=== PATIENT | female | born 1975 | race Caucasian/White ===

== ENCOUNTER 2020-06-30 13:49 | Emergency (ER) | payer MEDICAID ==
[~2020-06-30] VITALS: Ht 111.8 cm; Wt 33.0 kg
[2020-06-30] MEDS ORDERED: mineral oil 133ml enema RC PRN (17:05)
[2020-06-30] MEDS ORDERED: mineral oil 133ml enema RC ONE (18:15)
--- NOTE | 2020-06-30 20:12 | NUR ---
REPORTED TO DR BORJAS DIGITAL STIMULATION OF RECTUM TO LARGE HARD PIECES REMOVED WITH SSE.
[2020-06-30 22:12] VITALS: BP 98/66
== END 2020-06-30 22:14 | disposition home or self-care (01) ==
LOC: ER 13:50
DX: K59.00 Constipation, unspecified (principal); K56.41 Fecal impaction
CPT/HCPCS: 74018; 74176; 99284

== ENCOUNTER 2020-07-09 14:20 | Emergency (ER) | payer MEDICAID ==
[~2020-07-09] VITALS: Ht 111.8 cm; Wt 29.6 kg
[2020-07-09] MEDS ORDERED: normal saline 1000ML IV soln IVB ONE (15:40)
[2020-07-09 16:25] LABS: BASOPHILS % (AUTO) 0.5 % (0-1); EOSINOPHILS % (AUTO) 0 % (0-6); HEMOGLOBIN 13.2 g/dl (12.0-16.0); LYMPHOCYTES % (AUTO) 46.1 % (21-51); MEAN CORPUSCULAR HEMOGLOBIN 25.4 PG (27.0-31.0); MEAN CORPUSCULAR HGB CONC 32.2 g/dL (33.0-36.5); MEAN CORPUSCULAR VOLUME 78.9 FL (78-98); MEAN PLATELET VOLUME 8.5 FL (7.4-10.4); MONOCYTES # (AUTO) 1.2 X10'3 (0-0.9); MONOCYTES % (AUTO) 13.6 % (2-12); NEUTROPHILS # (AUTO) 3.4 X10'3 (1.8-7.7); NEUTROPHILS % (AUTO) 39.8 % (42-75); PLATELET COUNT 351 X10'3 (140-440); RED BLOOD COUNT 5.19 X10'6 (4.20-5.60); RED CELL DISTRIBUTION WIDTH 17.6 % (11.5-14.5); WHITE BLOOD COUNT 8.7 X10'3 (4.5-11.0)
[2020-07-09 16:34] LABS: ALANINE AMINOTRANSFERASE 35 U/L (12-78); ALBUMIN 3.6 G/DL (3.4-5.0); ALBUMIN/GLOBULIN RATIO 0.8 (1.1-1.5); ALKALINE PHOSPHATASE 111 IU/L (46-116); ANION GAP 8 (8-16); ASPARTATE AMINO TRANSFERASE 27 U/L (10-37); BILIRUBIN,TOTAL 0.2 MG/DL (0.1-1.0); BLOOD UREA NITROGEN 17 MG/DL (7-18); BUN/CREATININE RATIO 21.3 (6.6-38.0); CALCIUM 9.5 MG/DL (8.5-10.1); CHLORIDE 107 MMOL/L (99-107); GLUCOSE 85 MG/DL (70-104); POTASSIUM 4.1 MMOL/L (3.5-5.1); SODIUM 145 MMOL/L (135-145); TOTAL CARBON DIOXIDE 30.1 MMOL/L (24-32); TOTAL PROTEIN 8.2 G/DL (6.4-8.2); eGFR 78 ML/MIN
[2020-07-09] MEDS ORDERED: PEG 3350/Na sulf,bicarb,Cl/KCl oral sol 4 liter bottle PO ONE (20:20)
[2020-07-09] MEDS ORDERED: HYDROcodone/acetaminophen 5mg/325mg tablet PO PRN (20:55)
[2020-07-09] MEDS ORDERED: mag hydrox/Alum hydrox/simeth 30ml oral suspension PO PRN (20:55)
[2020-07-09] MEDS ORDERED: ondansetron/PF 4mg/2ml inj IV PRN (20:55)
[2020-07-09] MEDS ORDERED: morphine 2 MG/ML inj. syringe IV PRN ×2 (20:55)
[2020-07-09] MEDS ORDERED: normal saline 1000ml 1,000 ML IV SCH (20:55)
[2020-07-09] MEDS ORDERED: acetaminophen 325mg tablet PO PRN ×2 (20:55)
[2020-07-09] MEDS ORDERED: bisacodyl 10mg suppository rectal RC PRN (20:55)
--- NOTE | 2020-07-09 22:33 | NUR ---
Pt given sugar and baking soda enema aprox 500 ml. Pt digitally disimpacted as much as was reachable. Pt given another approx 500 ml enema. No formed results at this time.
--- NOTE | 2020-07-09 22:35 | NUR ---
A large amount of hard stool can still be palpated above the rectum.;
--- NOTE | 2020-07-09 23:09 | NUR ---
Rapid Covid ordered by Dr. REAL. Pt's roomate at living facility tested positive for covid. Pt swabbed and test sent to laboratory.
[2020-07-09] MEDS ORDERED: GOLYS PO (23:51)
--- NOTE | 2020-07-10 | NUR ---
Dr. Baker will not admit patient. Pt is able to be given go-litely at living facility.
--- NOTE | 2020-07-10 00:35 | NUR ---
[phone]; phone number to the house where pt lives. Caregiver at the house states that nobody is available at this time to transport pt back home, but she is making phone calls to try to arrange transportation.
--- NOTE | 2020-07-10 00:54 | NUR ---
Facility does not have any transportation for pt for tonight. RN [phone] BRAD.
[2020-07-10] MEDS ORDERED: metoclopramide 5 mg/ml inj IV SCH (02:00)
--- NOTE | 2020-07-10 02:38 | NUR ---
pt given water, brief checked, pt turned and given warm blanket. Afterwards pt resting comfortably.
--- NOTE | 2020-07-10 04:31 | NUR ---
pt sleeping peacefully on her left side.
--- NOTE | 2020-07-10 06:59 | NUR ---
pt repositioned on her back and given some sips of water.
[2020-07-10 07:00] VITALS: BP 92/64
[2020-07-10] MEDS ORDERED: docusate sod 100mg capsule PO SCH (08:00)
== END 2020-07-10 07:27 | disposition home or self-care (01) | DRG 137 ==
LOC: ER 14:21 → ED HOLD 20:54 → UNDOADMIN 20:54 → ED HOLD 07-10 07:14 → SUR 3N 07-10 07:14 → UNDODISIN 07-10 08:00
DX: U07.1 COVID-19 (principal); K56.41 Fecal impaction; K56.7 Ileus, unspecified
CPT/HCPCS: 36415; 74018; 80053; 85025; 87635; 99285; G0378; J7030

== ENCOUNTER 2021-11-08 11:10 | Inpatient (IN) | payer MEDICAID ==
[~2021-11-08] VITALS: Ht 111.8 cm; Wt 26.5 kg
[~2021-11-08 11:10] MED LIST: GOLYS PO
[2021-11-08 12:00] LABS: BASOPHILS # (AUTO) 0.1 X10'3 (0-0.2); BASOPHILS % (AUTO) 0.4 % (0-1); EOSINOPHILS % (AUTO) 0 % (0-6); LYMPHOCYTES # (AUTO) 2.1 X10'3 (1.1-4.8); LYMPHOCYTES % (AUTO) 9.5 % (21-51); MEAN PLATELET VOLUME 10.1 FL (7.4-10.4); MONOCYTES # (AUTO) 1.2 X10'3 (0-0.9); MONOCYTES % (AUTO) 5.6 % (2-12); NEUTROPHILS # (AUTO) 18.6 X10'3 (1.8-7.7); NEUTROPHILS % (AUTO) 84.5 % (42-75); PLATELET COUNT 593 X10'3 (140-440)
[2021-11-08 12:42] LABS: ALANINE AMINOTRANSFERASE 104 U/L (12-78); ALBUMIN 3.9 G/DL (3.4-5.0); ALBUMIN/GLOBULIN RATIO 0.8 (1.1-1.5); ALKALINE PHOSPHATASE 136 IU/L (46-116); ANION GAP 19 (8-16); ASPARTATE AMINO TRANSFERASE 39 U/L (10-37); BILIRUBIN,TOTAL 0.7 MG/DL (0.1-1.0); BLOOD UREA NITROGEN 105 MG/DL (7-18); BUN/CREATININE RATIO 35.6 (6.6-38.0); CHLORIDE 136 MMOL/L (99-107); CREATININE 2.95 MG/DL (0.40-0.90); GLUCOSE 146 MG/DL (70-104); HEMATOCRIT 50.5 % (35.0-45.0); HEMOGLOBIN 15.6 g/dl (12.0-16.0); LIPASE 543 U/L (73-393); RED BLOOD COUNT 6.46 X10'6 (4.20-5.60); TOTAL CARBON DIOXIDE 23.9 MMOL/L (24-32); TOTAL PROTEIN 9.1 G/DL (6.4-8.2); eGFR 17 ML/MIN
[2021-11-08 12:43] LABS: MEAN CORPUSCULAR HEMOGLOBIN 24.2 PG (27.0-31.0); MEAN CORPUSCULAR HGB CONC 30.9 g/dL (33.0-36.5); MEAN CORPUSCULAR VOLUME 78.3 FL (78-98); RED CELL DISTRIBUTION WIDTH 18.1 % (11.5-14.5)
[2021-11-08 12:51] LABS: SODIUM 179 MMOL/L (135-145)
--- NOTE | 2021-11-08 12:52 | NUR ---
Critical lab value: Na+ 179. notified
[2021-11-08] MEDS ORDERED: ringers solution, lactated 1000ml IV soln IV ONE (13:05)
[2021-11-08 13:13] LABS: ANISOCYTOSIS 2+; MICROCYTOSIS 1+; PLATELET ESTIMATE INCREASED
[2021-11-08] MEDS ORDERED: WATER IV ONE (13:55)
[2021-11-08] MEDS ORDERED: DEXTROSE 5% IV ONE (13:55)
[2021-11-08 14:20] LABS: CLARITY,URINE TURBID (Clear); COLOR,URINE YELLOW (Yellow); GLUCOSE, URINE NEGATIVE (Neg); KETONES,URINE TRACE mg/dl (Neg); LEUKOCYTE ESTERASE ,URINE LARGE (Neg); NITRITES, URINE NEGATIVE (Neg); OCCULT BLOOD,URINE LARGE (Neg); PROTEIN,URINE >=300 mg/dl (Neg); UROBILINOGEN,URINE 0.2 E.U/dL (0.2-1.0)
--- NOTE | 2021-11-08 14:23 | NUR ---
pt to ct.
[2021-11-08 14:35] LABS: UA COLLECTION TYPE NON-SPECIFIED
[2021-11-08 14:36] LABS: BACTERIA,URINE 3+ /HPF (Neg); WBC CLUMPS,URINE MANY /HPF (NEGATIVE); WBC,URINE TNTC /HPF (0-4)
[2021-11-08 14:38] LABS: RBC,URINE 0-2 /HPF (0-2); SQUAMOUS EPITHELIAL CELL,UR NONE SEEN /LPF (FEW)
--- NOTE | 2021-11-08 15:00 | NUR ---
Pt back from CT. Will restart lactated ringers when lab is done with 2nd draw. 300ml left to infuse
[2021-11-08] MEDS ORDERED: cefTRIAXone 1g/NS 100ml IVPB 100 ML IV ONE (15:05)
--- NOTE | 2021-11-08 15:15 | NUR ---
IV not working. Will restart.
[2021-11-08] MEDS ORDERED: acetaminophen 325mg tablet PO PRN ×2 (15:25)
[2021-11-08] MEDS ORDERED: morphine 2 MG/ML inj. syringe IV PRN ×2 (15:25)
[2021-11-08] MEDS ORDERED: ondansetron/PF 4mg/2ml inj IV PRN (15:25)
[2021-11-08] MEDS ORDERED: magnesium hydroxide 30ml (MOM) UD suspension PO PRN (15:25)
[2021-11-08] MEDS ORDERED: mag hydrox/Alum hydrox/simeth 30ml oral suspension PO PRN (15:25)
[2021-11-08] MEDS ORDERED: metoclopramide 5 mg/ml inj IV PRN (15:25)
[2021-11-08] MEDS ORDERED: acetaminophen 650mg rectal suppository RC PRN (15:25)
[2021-11-08] MEDS ORDERED: bisacodyl 10mg suppository rectal RC PRN (15:25)
[2021-11-08] MEDS ORDERED: DOCU100C40 PO (15:37)
[2021-11-08] MEDS ORDERED: LACT10SO57 PO (15:37)
[2021-11-08] MEDS ORDERED: MULT-1085 PO (15:37)
[2021-11-08] MEDS ORDERED: PSYL0.4C2 PO (15:37)
[2021-11-08] MEDS ORDERED: CALC-729 PO (15:37)
[2021-11-08] MEDS ORDERED: VITS42.53 TP (15:37)
[2021-11-08] MEDS ORDERED: LORA10TA7 PO (15:37)
[2021-11-08] MEDS: dextrose 5%-water 1,000 ML IV SCH (15:55)
--- NOTE | 2021-11-08 16:36 | NUR ---
No solar panel installation supervisor from [phone] for pt per solar panel installation supervisor at bedside due to staffing issues. Already cleared with charge nurse and nursing carbon paper coating supervisor per Shantal.
--- NOTE | 2021-11-08 17:48 | NUR ---
PT'S CONSERVATOR, DAVID AYALA, CALLED TO COMFIRM THAT PT IS A FULL CODE AT THIS TIME. DR REAL PAGED TO BE NOTIFIED
--- NOTE | 2021-11-08 19:05 | NUR ---
SPOKE TO CORROSION CONTROL FITTERWILIAN, CONCERNING PT'S LABS. CORROSION CONTROL FITTER AWARE.
--- NOTE | 2021-11-08 19:10 | NUR ---
SPOKE W/ DR DEL ROSARIO CONCERNING PT'S LABS. DR DEL ROSARIO GAVE VO TO ORDER A NEW BMP AT 1999 AND CALL HIM W/ RESULTS.
--- NOTE | 2021-11-08 19:20 | NUR ---
DR DEL ROSARIO WALKED IN PT'S ROOM AND ASSESSED PT. NO NEW ORDERS AT THIS TIME. DOES NOT BELIEVE PT SHOULD HAVE A LAWSON CATHETER AT THIS TIME.
--- NOTE | 2021-11-08 19:24 | NUR ---
Assising RN with pt care, I contacted Quinton Mitchell, conservator, at [phone]. She aware of pt's condition, pt to be full code at this time. Labs to be redrawn and plan of care decided, conservator aware and she would like to talk with doctor to discuss plan of care. Report to Odalys FRIEDMAN. Trice, nurse that has been taking care of pt, , main office [phone]
--- NOTE | 2021-11-08 19:26 | NUR ---
IDALIA LUCAS, CALLED CONSERVATOR LETTING HER KNOW PT WILL BE ADMITTED.
--- NOTE | 2021-11-08 19:34 | NUR ---
CAREGIVER AT BEDSIDE SHE FED PT HALF A PUDDING, TOLERATED WELL, NO N/V. PT ONLY DRINKS FROM SIPPY CUP PER CAREGIVER, FACILITY TO TRY AND BRING ONE, ATTEMPTING TO HAVE PT USE STRAW, TRIED SPOONING FLUID IN, NO SUCCESS. PT IS NOT USING STRAW OR SWALLOWING FLUID FROM A SPOON
[2021-11-08] MEDS: docusate sod 100mg capsule PO SCH (20:00)
[2021-11-08 20:06] LABS: ALBUMIN 2.7 G/DL (3.4-5.0); ANION GAP 8 (8-16); BLOOD UREA NITROGEN 96 MG/DL (7-18); BUN/CREATININE RATIO 39.3 (6.6-38.0); CALCIUM 9.2 MG/DL (8.5-10.1); CHLORIDE 129 MMOL/L (99-107); CREATININE 2.44 MG/DL (0.40-0.90); GLUCOSE 302 MG/DL (70-104); POTASSIUM 3.1 MMOL/L (3.5-5.1); TOTAL CARBON DIOXIDE 26.8 MMOL/L (24-32); eGFR 21 ML/MIN
[2021-11-08 20:10] LABS: SODIUM 164 MMOL/L (135-145)
--- NOTE | 2021-11-08 20:11 | NUR ---
SPOKE TO DR DEL ROSARIO OVER THE PHONE. LET HIM KNOW OF PT'S CRITICAL NA IMPROVEMENT. HE STATES TO CONTINUE TX ORDERED.
--- NOTE | 2021-11-08 21:00 | NUR ---
PT'S CAREGIVER NOTED THAT BOSS CAME IN ROOM AND STATED THAT PT "LOOKS SO MUCH BETTER THAN WHEN SHE CAME IN IN TERMS OF LIVELY BEHAVIOUR AND SKIN COLOR IMPROVMENT".
--- NOTE | 2021-11-08 21:08 | NUR ---
ATTEMPTED TO GIVE REPORT TO FLOOR RN, RN BUSY, WILL CALL BACK IN 15 MINUTES.
--- NOTE | 2021-11-08 21:32 | NUR ---
Received report from IDALIA Morrow. Awaiting patient arrival to the floor.
[2021-11-08 22:00] VITALS: BP 109/78
[2021-11-08] MEDS: heparin, porcine 5000 units/ml vial SQ SCH (22:27)
[2021-11-09] MEDS: dextrose 5%-water 1,000 ML IV SCH ×3 (03:52→21:25)
--- NOTE | 2021-11-09 06:19 | NUR ---
Problems reprioritized. Patient report given, questions answered & plan of care reviewed with IDALIA Brambila.
[2021-11-09 06:21] LABS: BASOPHILS # (AUTO) 0.1 X10'3 (0-0.2); BASOPHILS % (AUTO) 0.4 % (0-1); EOSINOPHILS # (AUTO) 0.2 X10'3 (0-0.9); HEMOGLOBIN 10.4 g/dl (12.0-16.0); LYMPHOCYTES # (AUTO) 2.6 X10'3 (1.1-4.8); LYMPHOCYTES % (AUTO) 14.5 % (21-51); MONOCYTES % (AUTO) 5.8 % (2-12); NEUTROPHILS % (AUTO) 78.3 % (42-75); PLATELET COUNT 317 X10'3 (140-440); WHITE BLOOD COUNT 17.9 X10'3 (4.5-11.0)
[2021-11-09 06:36] LABS: ALBUMIN 2.8 G/DL (3.4-5.0); ANION GAP 9 (8-16); BLOOD UREA NITROGEN 81 MG/DL (7-18); BUN/CREATININE RATIO 50.9 (6.6-38.0); CALCIUM 8.9 MG/DL (8.5-10.1); CHLORIDE 123 MMOL/L (99-107); CREATININE 1.59 MG/DL (0.40-0.90); GLUCOSE 144 MG/DL (70-104); POTASSIUM 3.3 MMOL/L (3.5-5.1); TOTAL CARBON DIOXIDE 28.1 MMOL/L (24-32); eGFR 35 ML/MIN
[2021-11-09 06:53] LABS: SODIUM 160 MMOL/L (135-145)
[2021-11-09 06:56] LABS: HEMATOCRIT 32.7 % (35.0-45.0); MEAN CORPUSCULAR HEMOGLOBIN 24.4 PG (27.0-31.0); MEAN CORPUSCULAR HGB CONC 31.7 g/dL (33.0-36.5); MEAN CORPUSCULAR VOLUME 76.8 FL (78-98); RED BLOOD COUNT 4.26 X10'6 (4.20-5.60)
[2021-11-09 07:00] VITALS: BP 112/80
[2021-11-09 07:21] LABS: ANISOCYTOSIS 1+; MICROCYTOSIS 1+; PLATELET ESTIMATE NORMAL
[2021-11-09 07:22] LABS: LARGE PLATELETS FEW
[2021-11-09] MEDS: heparin, porcine 5000 units/ml vial SQ SCH ×2 (07:31→20:08)
[2021-11-09] MEDS: docusate sod 100mg capsule PO SCH ×2 (08:00→20:00)
--- NOTE | 2021-11-09 08:47 | NUR ---
Patient in room [facility]. I have received report from IDALIA Brambila and had the opportunity to ask questions and assume patient care.
--- NOTE | 2021-11-09 09:54 | NUR ---
Spoke to Quinton, conservator, over the phone updated her with plan of care.
[2021-11-09] MEDS: mineral oil 133ml enema RC PRN (10:35)
--- NOTE | 2021-11-09 10:38 | NUR ---
Malnutrition consult: Pt admitted w/ concerns for a decline in status and poor PO intake, has hx of cerebral palsy, developmental delay, constipation, and is nonverbal per EMR. D/w caregiver, Teto, over the phone who states pt's baseline wt is around 63lb and her last scaled wt on 11/06 was 61.4lb. Caregiver reports pt would eat anywhere from 25-75% of puree meals at her facility and consume between 1 to 3 [place] instant breakfast shakes as well (which provide 240kcals and 10g protein each). Caregiver state's that pt did not appear to have any muscle or fat wasting and looks similar to baseline appearance. No edema noted. At this time, pt does not meet minimum criteria for malnutrition. Pt currently receiving D5W at 100ml/hr providing 408kcals. Caregiver also expressed desire for pt to have BSS evaluation, which has been recommended by [facility]. Pt also apparently only drinks fluids from sippy cup. Will continue to monitor. Addendum: 11/09/21 at [address] Amended: Links added.
[2021-11-09 11:00] VITALS: BP 105/71
--- NOTE | 2021-11-09 13:01 | NUR ---
Patient in room [facility]A. I have received report from Laury, student nurse and had the opportunity to ask questions and assume patient care.
[2021-11-09] MEDS: cefTRIAXone 1g/NS 100ml IVPB 100 ML IV SCH (15:44)
[2021-11-09 17:50] LABS: ALBUMIN 2.6 G/DL (3.4-5.0); ANION GAP 2 (8-16); BLOOD UREA NITROGEN 53 MG/DL (7-18); BUN/CREATININE RATIO 51.5 (6.6-38.0); CALCIUM 8.3 MG/DL (8.5-10.1); CHLORIDE 117 MMOL/L (99-107); CREATININE 1.03 MG/DL (0.40-0.90); GLUCOSE 119 MG/DL (70-104); SODIUM 150 MMOL/L (135-145); TOTAL CARBON DIOXIDE 31.2 MMOL/L (24-32); eGFR 58 ML/MIN
[2021-11-09 17:55] LABS: POTASSIUM 2.9 MMOL/L (3.5-5.1)
[2021-11-09] MEDS ORDERED: potassium Cl 20 mEq SR tablet PO PRN ×2 (18:15)
[2021-11-09] MEDS ORDERED: magnesium 2GM in 50ml NS 50 ML IV PRN (18:15)
[2021-11-09] MEDS ORDERED: magnesium Cl slow-release 64mg tablet PO PRN (18:15)
[2021-11-09] MEDS ORDERED: magnesium 4gm in 100ml NS 100 ML IV PRN (18:15)
--- NOTE | 2021-11-09 18:18 | NUR ---
Problems reprioritized. Patient report given, questions answered & plan of care reviewed with Maryana Mijares RN.
--- NOTE | 2021-11-09 18:19 | NUR ---
Critical potassium of 2.[address] Baker, will start on replacement protocol.
--- NOTE | 2021-11-09 18:30 | NUR ---
Patient in room [facility]. I have received report from RUPINDER FRIEDMAN and had the opportunity to ask questions and assume patient care.
[2021-11-09 19:26] LABS: MAGNESIUM 2.8 MG/DL (1.5-2.4)
[2021-11-09 19:31] LABS: POTASSIUM 2.9 MMOL/L (3.5-5.1)
[2021-11-09] MEDS: potassium CL 10mEq/100ml bag 100 ML IV PRN ×2 (19:55→21:36)
[2021-11-09 20:00] VITALS: BP 109/64
[2021-11-09] MEDS: K and/or MAG REPLACEMENT MC SCH (20:00)
[2021-11-10] VITALS: BP 94/51
[2021-11-10] MEDS: potassium CL 10mEq/100ml bag 100 ML IV PRN ×3 (00:09→03:59)
[2021-11-10] MEDS: dextrose 5%-water 1,000 ML IV SCH ×2 (04:05→14:59)
[2021-11-10 06:06] LABS: BASOPHILS % (AUTO) 0.2 % (0-1); EOSINOPHILS # (AUTO) 0.4 X10'3 (0-0.9); EOSINOPHILS % (AUTO) 3.6 % (0-6); HEMATOCRIT 32.6 % (35.0-45.0); HEMOGLOBIN 10.1 g/dl (12.0-16.0); LYMPHOCYTES # (AUTO) 2.4 X10'3 (1.1-4.8); MEAN CORPUSCULAR HEMOGLOBIN 24.3 PG (27.0-31.0); MEAN CORPUSCULAR VOLUME 78.3 FL (78-98); MEAN PLATELET VOLUME 9.5 FL (7.4-10.4); MONOCYTES # (AUTO) 0.8 X10'3 (0-0.9); MONOCYTES % (AUTO) 6.6 % (2-12); NEUTROPHILS # (AUTO) 7.9 X10'3 (1.8-7.7); NEUTROPHILS % (AUTO) 68.6 % (42-75); PLATELET COUNT 294 X10'3 (140-440); RED BLOOD COUNT 4.16 X10'6 (4.20-5.60); RED CELL DISTRIBUTION WIDTH 18.4 % (11.5-14.5); WHITE BLOOD COUNT 11.5 X10'3 (4.5-11.0)
[2021-11-10 06:23] LABS: ALBUMIN 2.6 G/DL (3.4-5.0); ANION GAP 9 (8-16); BLOOD UREA NITROGEN 34 MG/DL (7-18); BUN/CREATININE RATIO 44.7 (6.6-38.0); CALCIUM 8.9 MG/DL (8.5-10.1); CHLORIDE 115 MMOL/L (99-107); CREATININE 0.76 MG/DL (0.40-0.90); GLUCOSE 98 MG/DL (70-104); MAGNESIUM 2.9 MG/DL (1.5-2.4); POTASSIUM 4.5 MMOL/L (3.5-5.1); SODIUM 150 MMOL/L (135-145); TOTAL CARBON DIOXIDE 25.7 MMOL/L (24-32); eGFR 82 ML/MIN
--- NOTE | 2021-11-10 06:30 | NUR ---
Problems reprioritized. Patient report given, questions answered & plan of care reviewed with PRASHANTH FRIEDMAN.
--- NOTE | 2021-11-10 06:41 | NUR ---
Patient in room [facility]. I have received report from IDALIA Faria and had the opportunity to ask questions and assume patient care.
--- NOTE | 2021-11-10 06:50 | NUR ---
Patient in room [facility]. I have received report from IDALIA Faria and had the opportunity to ask questions and assume patient care.
[2021-11-10] MEDS: docusate sod 100mg capsule PO SCH ×2 (07:05→19:42)
[2021-11-10 08:00] VITALS: BP 129/78
[2021-11-10] MEDS: K and/or MAG REPLACEMENT MC SCH ×2 (08:06→19:17)
[2021-11-10] MEDS: heparin, porcine 5000 units/ml vial SQ SCH ×2 (08:08→20:00)
[2021-11-10 08:28] VITALS: BP 110/86
[2021-11-10] MEDS: mineral oil 133ml enema RC PRN (10:27)
[2021-11-10 12:00] VITALS: BP 93/67
--- NOTE | 2021-11-10 12:18 | NUR ---
Nutrition consult re: "pt has not eaten in a couple of months/failed swallow eval". Pt has already been assessed by RD for nutrition status following conversation with patient's caregiver, see previous RD note. Pt s/p BSS 11/09 and 11/[address] recs NPO as pt not moving bolus and pt may need alternative nutrition. IF PO diet unable to be advanced recommend NGT placement for TF versus a PEG for fpc nutrition. Noted pt currently receiving D5 at 100 mL/hr which provides 408 kcal/day which meets 53% estimated energy needs though 0% estimated protein needs. Pt admit for KRISTINA with hypernatremia, UTI, and constipation. LBM 11/10 per I&O following admin of PRN mineral oil enema 11/09 and 11/10. Pt with routine bowel care available though not being given d/t NPO status per EMR. Noted pt with a Christ of 10. Per EMR no edema and skin is intact. Will continue to follow and make recommendations as appropriate. Recommendations: 1) Advance to regular diet as medically indicated IF pt able to tolerate PO intake pending f/u BSS with ST; Consider Ensure with diet advancement 2) IF PO diet unable to be advanced, consider nutrition support; continuous Jevity 1.2 with 30 mL/hr goal rate 3) Routine bowel care 4) Scaled weight this admit; weekly scaled weights thereafter Addendum: 11/10/21 at [address] Amended: Links added.
[2021-11-10 12:31] VITALS: BP 93/67
[2021-11-10] MEDS: cefTRIAXone 1g/NS 100ml IVPB 100 ML IV SCH (14:59)
[2021-11-10 18:00] VITALS: BP 97/50
--- NOTE | 2021-11-10 18:28 | NUR ---
Problems reprioritized. Patient report given, questions answered & plan of care reviewed with IDALIA Washington.
[2021-11-11] VITALS: BP 111/54
[2021-11-11] MEDS: dextrose 5%-water 1,000 ML IV SCH (03:25)
--- NOTE | 2021-11-11 06:17 | NUR ---
Patient in room [facility]. I have received report from IDALIA Washington and had the opportunity to ask questions and assume patient care.
[2021-11-11] MEDS: heparin, porcine 5000 units/ml vial SQ SCH ×2 (07:07→19:39)
[2021-11-11] MEDS: docusate sod 100mg capsule PO SCH (07:08)
[2021-11-11 07:14] LABS: BASOPHILS % (AUTO) 0.1 % (0-1); EOSINOPHILS # (AUTO) 0.5 X10'3 (0-0.9); EOSINOPHILS % (AUTO) 5.9 % (0-6); HEMOGLOBIN 9.6 g/dl (12.0-16.0); LYMPHOCYTES # (AUTO) 2.1 X10'3 (1.1-4.8); LYMPHOCYTES % (AUTO) 25.6 % (21-51); MEAN PLATELET VOLUME 9.2 FL (7.4-10.4); MONOCYTES # (AUTO) 0.5 X10'3 (0-0.9); MONOCYTES % (AUTO) 5.8 % (2-12); NEUTROPHILS % (AUTO) 62.6 % (42-75); PLATELET COUNT 209 X10'3 (140-440); WHITE BLOOD COUNT 8.1 X10'3 (4.5-11.0)
[2021-11-11 07:26] LABS: ALBUMIN 2.2 G/DL (3.4-5.0); ANION GAP 7 (8-16); BLOOD UREA NITROGEN 14 MG/DL (7-18); BUN/CREATININE RATIO 31.1 (6.6-38.0); CALCIUM 8.4 MG/DL (8.5-10.1); CHLORIDE 114 MMOL/L (99-107); CREATININE 0.45 MG/DL (0.40-0.90); GLUCOSE 93 MG/DL (70-104); MAGNESIUM 2.7 MG/DL (1.5-2.4); POTASSIUM 3.6 MMOL/L (3.5-5.1); SODIUM 145 MMOL/L (135-145); TOTAL CARBON DIOXIDE 23.7 MMOL/L (24-32); eGFR > 90 ML/MIN
[2021-11-11 07:33] LABS: HEMATOCRIT 29.8 % (35.0-45.0); RED BLOOD COUNT 3.77 X10'6 (4.20-5.60)
[2021-11-11 07:34] LABS: MEAN CORPUSCULAR HEMOGLOBIN 25.4 PG (27.0-31.0); MEAN CORPUSCULAR HGB CONC 32.2 g/dL (33.0-36.5)
[2021-11-11 07:47] LABS: ANISOCYTOSIS 2+; MICROCYTOSIS 1+; PLATELET ESTIMATE NORMAL; ROULEAUX 2+
[2021-11-11 08:00] VITALS: BP_SYST 106; BP_SYST 81; BP_DIAS 53; BP_DIAS 60
[2021-11-11] MEDS: K and/or MAG REPLACEMENT MC SCH ×2 (08:00→19:50)
[2021-11-11] MEDS ORDERED: magnesium 4gm in 100ml NS 100 ML IV PRN (10:55)
[2021-11-11] MEDS ORDERED: magnesium Cl slow-release 64mg tablet PO PRN (10:55)
[2021-11-11] MEDS ORDERED: Dextrose 10%-water IV solution 1,000 ML IV PRN ×2 (10:55→13:52)
[2021-11-11] MEDS ORDERED: magnesium 2GM in 50ml NS 50 ML IV PRN (10:55)
[2021-11-11 11:53] VITALS: BP 99/55
[2021-11-11 12:21] LABS: ALANINE AMINOTRANSFERASE 49 U/L (12-78); ALBUMIN 2.2 G/DL (3.4-5.0); ALBUMIN/GLOBULIN RATIO 0.7 (1.1-1.5); ALKALINE PHOSPHATASE 97 IU/L (46-116); ANION GAP 11 (8-16); ASPARTATE AMINO TRANSFERASE 30 U/L (10-37); BILIRUBIN,TOTAL 0.3 MG/DL (0.1-1.0); BLOOD UREA NITROGEN 12 MG/DL (7-18); BUN/CREATININE RATIO 21.4 (6.6-38.0); CALCIUM 8.2 MG/DL (8.5-10.1); CHLORIDE 110 MMOL/L (99-107); CREATININE 0.56 MG/DL (0.40-0.90); GLUCOSE 100 MG/DL (70-104); MAGNESIUM 2.5 MG/DL (1.5-2.4); PHOSPHORUS 2.6 MG/DL (2.3-4.5); POTASSIUM 3.2 MMOL/L (3.5-5.1); PREALBUMIN 13.4 MG/DL (19-36); SODIUM 145 MMOL/L (135-145); TOTAL CARBON DIOXIDE 24.5 MMOL/L (24-32); TOTAL PROTEIN 5.5 G/DL (6.4-8.2); eGFR > 90 ML/MIN
[2021-11-11] MEDS: mineral oil 133ml enema RC PRN ×2 (12:56→23:55)
[2021-11-11] MEDS: potassium CL 10mEq/100ml bag 100 ML IV PRN ×4 (12:57→20:50)
[2021-11-11] MEDS: dextrose 5%-1/2 normal saline 1,000 ML IV SCH ×2 (13:25→19:30)
--- NOTE | 2021-11-11 13:25 | NUR ---
PPN Consult: Per MD note, "could consider PPN versus TPN temporarily until her gut function stabilizes." However, per rn advice pt is having small bowel movements w/ last documented 11/11. Spoke to gas charger with recommendation for NG tube given functioning gut, however RN unsure of pt having bowel movements. Per RN, Dextrose to be discontinued once PPN is initiated. PPN recommendations below were d/w clinical pharmacist. Once at goal PPN will meet 100% of patient's estimated protein needs though unable to fully meet estimated energy needs. Pt's diet has been advanced to full liquids per ST [facility] MD notified per gas charger. Will continue to follow closely and make recommendations as appropriate. Recommendations: 1) Continuous PPN per MD using 2:1 Clinimix-E 4.25/10 with goal rate 36 mL/hr with additional 250 mL 20% intralipids to run at 20.83 mL/hr for 12 hrs on Tuesdays and Fridays. In total to provide 864 mL total volume/day, 581 avg kcal, 36g AA, and 86g dextrose (2.44 mg/kg/min dext load). Unable to meet estimated energy needs. 2) Prealbumin and TG q Sunday/ 3) If able to transition to TF, Continuous Jevity 1.2 with 30 mL/hr goal rate 4) Routine bowel care 5) Daily scaled wts 6) Advance to regular diet as medically indicated IF pt able to tolerate PO intake pending f/u BSS with ST; Consider Ensure with diet advancement Addendum: 11/11/21 at [address] Intern RD Amended: Links added. Addendum: 11/11/21 at [address] I have reviewed and agree with note by Regulatory Law SpecialistKris Estrada RD
[2021-11-11] MEDS: cefTRIAXone 1g/NS 100ml IVPB 100 ML IV SCH (15:01)
--- NOTE | 2021-11-11 18:16 | NUR ---
Problems reprioritized. Patient report given, questions answered & plan of care reviewed with IDALIA Maddox. This nurse and oncoming shift nurse called pharmacist Imtiaz to clarify lipids and tpn running through [facility]. Iggy Kitchen stated okay to give lipids and tpn via [facility]line.
[2021-11-11 20:00] VITALS: BP 107/58
[2021-11-11] MEDS: docusate sodium 100mg/10ml UD cup PO SCH ×2 (20:00→20:50)
[2021-11-11] MEDS ORDERED: fat emulsion IV bag 250 ML IV SCH (21:00)
[2021-11-11] MEDS ORDERED: ZINC/COPPER/MANGANESE/SELENIUM 1 ML, chromic chloride inj. 10 MCG in AA 4.25%/CALCIUM/L... IV SCH (21:00)
[2021-11-11] MEDS: MVI, adult No.4 with vit. K 10 ML in dextrose 5% water 500ml 500 ML IV SCH ×2 (23:41)
[2021-11-12] VITALS: BP 123/66
--- NOTE | 2021-11-12 06:50 | NUR ---
pt resting in bed, no distress noted. hob elevated 45 degrees. pt would not take po during my shift. tpn needs clarification . pharmacist and dr goetz aware
[2021-11-12 06:54] LABS: BASOPHILS % (AUTO) 0.2 % (0-1); EOSINOPHILS # (AUTO) 0.3 X10'3 (0-0.9); EOSINOPHILS % (AUTO) 4.2 % (0-6); HEMATOCRIT 26.7 % (35.0-45.0); HEMOGLOBIN 8.3 g/dl (12.0-16.0); LYMPHOCYTES # (AUTO) 2.1 X10'3 (1.1-4.8); LYMPHOCYTES % (AUTO) 33.6 % (21-51); MEAN CORPUSCULAR HEMOGLOBIN 24.3 PG (27.0-31.0); MEAN CORPUSCULAR HGB CONC 30.9 g/dL (33.0-36.5); MEAN CORPUSCULAR VOLUME 78.6 FL (78-98); MONOCYTES # (AUTO) 0.4 X10'3 (0-0.9); MONOCYTES % (AUTO) 7.4 % (2-12); NEUTROPHILS # (AUTO) 3.3 X10'3 (1.8-7.7); NEUTROPHILS % (AUTO) 54.6 % (42-75); PLATELET COUNT 197 X10'3 (140-440); WHITE BLOOD COUNT 6.1 X10'3 (4.5-11.0)
[2021-11-12 07:00] VITALS: BP 105/54
[2021-11-12 07:12] LABS: ALANINE AMINOTRANSFERASE 61 U/L (12-78); ALBUMIN 1.9 G/DL (3.4-5.0); ALBUMIN/GLOBULIN RATIO 0.6 (1.1-1.5); ALKALINE PHOSPHATASE 90 IU/L (46-116); ANION GAP 4 (8-16); ASPARTATE AMINO TRANSFERASE 50 U/L (10-37); BILIRUBIN,TOTAL 0.2 MG/DL (0.1-1.0); BLOOD UREA NITROGEN 10 MG/DL (7-18); BUN/CREATININE RATIO 21.3 (6.6-38.0); CALCIUM 7.7 MG/DL (8.5-10.1); CHLORIDE 115 MMOL/L (99-107); CREATININE 0.47 MG/DL (0.40-0.90); GLUCOSE 84 MG/DL (70-104); MAGNESIUM 2.3 MG/DL (1.5-2.4); PHOSPHORUS 1.9 MG/DL (2.3-4.5); POTASSIUM 4.3 MMOL/L (3.5-5.1); SODIUM 145 MMOL/L (135-145); TOTAL CARBON DIOXIDE 26.2 MMOL/L (24-32); TRIGLYCERIDES 126 MG/DL (20-135); eGFR > 90 ML/MIN
[2021-11-12] MEDS: docusate sodium 100mg/10ml UD cup PO SCH ×3 (08:00→09:49)
[2021-11-12] MEDS: K and/or MAG REPLACEMENT MC SCH ×2 (08:00→20:00)
[2021-11-12] MEDS: heparin, porcine 5000 units/ml vial SQ SCH ×2 (08:40→22:33)
--- NOTE | 2021-11-12 09:21 | NUR ---
pt has orders for TPN and lipids. Pt only has [facility] (peripheral). Pharmacy needs clarification as TPN and Lipids on bag says only give via [facility]. [employer] Executive Director called and paged. This nurse, [employer] Executive Director, pharmacy, and MD involved in care.
[2021-11-12 09:52] VITALS: BP 159/99
[2021-11-12] MEDS: mineral oil 133ml enema RC PRN ×2 (11:59→23:51)
--- NOTE | 2021-11-12 12:28 | NUR ---
Received TC from RN regarding patient's nutrition status. PPN was not started d/t confusion regarding Clinimix formula. Per ASPEN guidelines osmolarity via PPN is recommended to not exceed 900 mOsm/L and current available formula provides 914 mOsm/L. TC to clinical pharmacist who says it's okay to give current formula via PIV, clinical pharmacist to d/w RN. Per RN pt a little more oriented and consuming slightly more food today though still not adequate enough to meet estimated nutrient needs. D/w RN recommendation for Ensure Enlive BID for additional nutrition. D/w dietary to send pudding TID and strawberry shakes BIDLD per pt preferences to optimize PO intake. Per RN pt stooling however still having some constipation. Pt receiving PRN mineral oil enema with routine bowel care available. Will continue to follow closely and make recommendations as appropriate. Recommendations: 1) Continuous PPN per MD using 2:1 Clinimix-E 4.25/10 with goal rate 36 mL/hr with additional 250 mL 20% intralipids to run at 20.83 mL/hr for 12 hrs on Tuesdays and Fridays. In total to provide 864 mL total volume/day, 581 avg kcal, 36g AA, and 86g dextrose (2.44 mg/kg/min dext load). Unable to meet estimated energy needs. 2) Prealbumin and TG q Sunday/ 3) If able to transition to TF, continuous Jevity 1.2 with 30 mL/hr goal rate 4) Routine bowel care; utilize PRN bowel care 5) Daily scaled wts 6) Advance to regular diet as medically indicated pending f/u BSS with ST 7) Ensure Enlive BIDBD, chocolate pudding TIDWM, and strawberry shake BIDLD Addendum: 11/12/21 at [address] Amended: Links added.
[2021-11-12] MEDS: lactose-reduced food (Ensure Enlive) - 237ml bottle PO SCH ×2 (12:52→20:00)
--- NOTE | 2021-11-12 13:04 | NUR ---
Per Group Program Managerterry Estrada and Pharmacist atiya Serra to give Clinimix w/electrolytes (on EMAR) via [facility]. Addendum: 11/12/21 at 1318 by Nicole Guidry RN Per Group Program Managerterry Estrada and atiya Emery to give ppn via [facility]. Addendum: 11/12/21 at 1809 by Nicole Guidry RN Per Group Program Managerterry Estrada and atiya Emery to give ppn and lipids via [facility].
--- NOTE | 2021-11-12 13:07 | NUR ---
Pharmacist Maryse recalled this nurse and said do not give ppn at this time as they are making a different batch. At this time, hold ppn. New ppn will be started on nightshift.
--- NOTE | 2021-11-12 13:25 | NUR ---
Received TC from clinical pharmacist who reports currently in the process of trying to obtain a different PPN formula (Clinimix non-E 4.25/5). Updated recommendations below for if this is achieved were d/w clinical pharmacist, see below. Updated recommendations will meet 100% estimated protein needs though only 56% minimum estimated energy needs and will provide 674 mOsm/L. Electrolytes will not be provided via Clinimix formula IF patient changes from Clinimix 4.25/10 to Clinimix 4.25/5 d/t availability. Noted patient's serum phos is low, clinical pharmacist to d/w MD. Additional PRN mag and K replacement already available on med list. Recommendations: 1) Continuous PPN per MD using 2:1 Clinimix-E 4.25/10 with goal rate 36 mL/hr with additional 250 mL 20% intralipids to run at 20.83 mL/hr for 12 hrs on Tuesdays and Fridays. In total to provide 864 mL total volume/day, 581 avg kcal, 37 g AA, and 86 g dextrose (2.44 mg/kg/min dext load). Unable to meet estimated energy needs. 2) IF Clinimix non-E 4.25/5 is available, continuous 2:1 Clinimix non-E 4.25/5 with 36 mL/hr goal rate with additional 250 mL 20% intralipids to run at 20.83 mL/hr for 12 hours on Tuesdays and Fridays. In total to provide 864 mL total volume/day, 37 g AA, 43 g dext (1.21 mg/kg/min dext load), and average 437 kcal/day. Unable to meet estimated energy needs 3) Prealbumin and TG q Sunday/ 4) If able to transition to TF, continuous Jevity 1.2 with 30 mL/hr goal rate 5) Routine bowel care; utilize PRN bowel care 6) Daily scaled wts 7) Advance to regular diet as medically indicated pending f/u BSS with ST 8) Ensure Enlive BIDBD, chocolate pudding TIDWM, and strawberry shake BIDLD Addendum: 11/12/21 at [address] Amended: Links added.
[2021-11-12 13:39] VITALS: BP 111/59
[2021-11-12] MEDS: cefTRIAXone 1g/NS 100ml IVPB 100 ML IV SCH (14:53)
[2021-11-12] MEDS ORDERED: MANGANESE IV SCH (17:00)
[2021-11-12] MEDS ORDERED: COPPER IV SCH (17:00)
[2021-11-12] MEDS ORDERED: CHROMIC CHLORIDE IV SCH (17:00)
[2021-11-12] MEDS ORDERED: ZINC IV SCH (17:00)
[2021-11-12] MEDS ORDERED: [UNRECOGNIZED DRUG - OTHER] IV SCH (17:00)
[2021-11-12] MEDS ORDERED: SELENIUM IV SCH (17:00)
[2021-11-12] MEDS ORDERED: fat emulsion IV bag 250 ML IV SCH (17:00)
--- NOTE | 2021-11-12 18:18 | NUR ---
PPN and Lipids not started during this shift as Pharmacist Maryse stated not to start the bag in the fridge and will remake one. Called twice, spoke to Pharmacist Tahira about no ppn/lipids on floor at this time. She stated "the ppn and fats can be given via midline".
[2021-11-12 20:00] VITALS: BP 90/68
[2021-11-12 20:30] VITALS: BP 97/57
[2021-11-12] MEDS: CHROMIC CHLORIDE IV SCH (21:51)
[2021-11-12] MEDS: [UNRECOGNIZED DRUG - OTHER] IV SCH (21:51)
[2021-11-12] MEDS: ZINC IV SCH (21:51)
[2021-11-12] MEDS: MANGANESE IV SCH (21:51)
[2021-11-12] MEDS: SELENIUM IV SCH (21:51)
[2021-11-12] MEDS: COPPER IV SCH (21:51)
[2021-11-12] MEDS: fat emulsion IV bag 250 ML IV SCH (21:52)
[2021-11-12] MEDS: dextrose 5%-1/2 normal saline 1,000 ML IV SCH (21:52)
[2021-11-13] VITALS: BP 105/57
--- NOTE | 2021-11-13 06:39 | NUR ---
unable to draw blood from midline this am am nurse henry notified
[2021-11-13] MEDS: K and/or MAG REPLACEMENT MC SCH ×2 (08:00→20:00)
[2021-11-13] MEDS: lactose-reduced food (Ensure Enlive) - 237ml bottle PO SCH ×2 (08:00→20:00)
[2021-11-13] MEDS: heparin, porcine 5000 units/ml vial SQ SCH ×2 (08:10→21:12)
[2021-11-13 09:35] VITALS: BP 101/65
[2021-11-13 10:16] LABS: BASOPHILS % (AUTO) 0.3 % (0-1); EOSINOPHILS # (AUTO) 0.3 X10'3 (0-0.9); EOSINOPHILS % (AUTO) 4.3 % (0-6); HEMATOCRIT 25.9 % (35.0-45.0); HEMOGLOBIN 8.3 g/dl (12.0-16.0); LYMPHOCYTES # (AUTO) 1.7 X10'3 (1.1-4.8); LYMPHOCYTES % (AUTO) 22.9 % (21-51); MEAN CORPUSCULAR HEMOGLOBIN 24.9 PG (27.0-31.0); MEAN CORPUSCULAR HGB CONC 31.9 g/dL (33.0-36.5); MEAN PLATELET VOLUME 9.4 FL (7.4-10.4); MONOCYTES # (AUTO) 0.5 X10'3 (0-0.9); MONOCYTES % (AUTO) 6.5 % (2-12); PLATELET COUNT 185 X10'3 (140-440); RED BLOOD COUNT 3.32 X10'6 (4.20-5.60); RED CELL DISTRIBUTION WIDTH 18.3 % (11.5-14.5); WHITE BLOOD COUNT 7.6 X10'3 (4.5-11.0)
[2021-11-13 10:25] LABS: ALANINE AMINOTRANSFERASE 83 U/L (12-78); ALBUMIN 1.9 G/DL (3.4-5.0); ALBUMIN/GLOBULIN RATIO 0.6 (1.1-1.5); ALKALINE PHOSPHATASE 102 IU/L (46-116); ANION GAP 6 (8-16); ASPARTATE AMINO TRANSFERASE 62 U/L (10-37); BILIRUBIN,TOTAL 0.2 MG/DL (0.1-1.0); BLOOD UREA NITROGEN 8 MG/DL (7-18); BUN/CREATININE RATIO 18.6 (6.6-38.0); CALCIUM 7.6 MG/DL (8.5-10.1); CHLORIDE 113 MMOL/L (99-107); CREATININE 0.43 MG/DL (0.40-0.90); GLUCOSE 98 MG/DL (70-104); PHOSPHORUS 1.9 MG/DL (2.3-4.5); POTASSIUM 3.1 MMOL/L (3.5-5.1); SODIUM 143 MMOL/L (135-145); TOTAL CARBON DIOXIDE 23.6 MMOL/L (24-32); TOTAL PROTEIN 5.1 G/DL (6.4-8.2); eGFR > 90 ML/MIN
[2021-11-13 11:00] VITALS: BP 123/78
[2021-11-13] MEDS ORDERED: magnesium Cl slow-release 64mg tablet PO PRN (11:00)
[2021-11-13] MEDS ORDERED: magnesium 2GM in 50ml NS 50 ML IV PRN (11:00)
[2021-11-13] MEDS ORDERED: magnesium 4gm in 100ml NS 100 ML IV PRN (11:00)
[2021-11-13] MEDS ORDERED: potassium Cl 20 mEq SR tablet PO PRN ×2 (11:00)
[2021-11-13] MEDS: potassium CL 10mEq/100ml bag 100 ML IV PRN ×3 (11:11→13:40)
[2021-11-13] MEDS ORDERED: potassium phosphate inj 15 MMOL in NS 250ml IV soln 250 ML IV ONE (14:00)
--- NOTE | 2021-11-13 15:00 | NUR ---
Per Pharmacist Harshal, hold remainder of K replacement as pt is to receive KPhos.
[2021-11-13] MEDS: cefTRIAXone 1g/NS 100ml IVPB 100 ML IV SCH (15:54)
--- NOTE | 2021-11-13 18:41 | NUR ---
Problems reprioritized. Patient report given, questions answered & plan of care reviewed with IDALIA Cifuentes.
[2021-11-13 20:00] VITALS: BP 107/66
[2021-11-13] MEDS: docusate sodium 100mg/10ml UD cup PO SCH (21:11)
[2021-11-13] MEDS: [UNRECOGNIZED DRUG - OTHER] IV SCH (21:42)
[2021-11-13] MEDS: CHROMIC CHLORIDE IV SCH (21:42)
[2021-11-13] MEDS: SELENIUM IV SCH (21:42)
[2021-11-13] MEDS: COPPER IV SCH (21:42)
[2021-11-13] MEDS: ZINC IV SCH (21:42)
[2021-11-13] MEDS: MANGANESE IV SCH (21:42)
[2021-11-14] VITALS: BP 98/65
[2021-11-14 06:58] LABS: ANION GAP 6 (8-16); BILIRUBIN,TOTAL 0.1 MG/DL (0.1-1.0); BLOOD UREA NITROGEN 13 MG/DL (7-18); BUN/CREATININE RATIO 43.3 (6.6-38.0); CALCIUM 7.6 MG/DL (8.5-10.1); CHLORIDE 114 MMOL/L (99-107); GLUCOSE 88 MG/DL (70-104); POTASSIUM 3.6 MMOL/L (3.5-5.1); SODIUM 144 MMOL/L (135-145); TOTAL CARBON DIOXIDE 23.8 MMOL/L (24-32); TOTAL PROTEIN 4.8 G/DL (6.4-8.2); eGFR > 90 ML/MIN
[2021-11-14 06:59] LABS: ALANINE AMINOTRANSFERASE 82 U/L (12-78); ALBUMIN 1.7 G/DL (3.4-5.0); ALBUMIN/GLOBULIN RATIO 0.5 (1.1-1.5); ALKALINE PHOSPHATASE 100 IU/L (46-116); ASPARTATE AMINO TRANSFERASE 65 U/L (10-37); TRIGLYCERIDES 135 MG/DL (20-135)
[2021-11-14 07:00] VITALS: BP 94/50
[2021-11-14] MEDS: docusate sodium 100mg/10ml UD cup PO SCH ×2 (08:00→21:16)
[2021-11-14] MEDS: lactose-reduced food (Ensure Enlive) - 237ml bottle PO SCH ×2 (08:00→20:00)
[2021-11-14] MEDS: heparin, porcine 5000 units/ml vial SQ SCH ×2 (08:22→21:17)
[2021-11-14] MEDS: K and/or MAG REPLACEMENT MC SCH ×2 (08:45→20:00)
[2021-11-14 09:25] LABS: BASOPHILS % (AUTO) 0.4 % (0-1); EOSINOPHILS # (AUTO) 0.3 X10'3 (0-0.9); EOSINOPHILS % (AUTO) 4.3 % (0-6); HEMATOCRIT 26.3 % (35.0-45.0); HEMOGLOBIN 8.1 g/dl (12.0-16.0); LYMPHOCYTES # (AUTO) 2.1 X10'3 (1.1-4.8); LYMPHOCYTES % (AUTO) 33.3 % (21-51); MEAN CORPUSCULAR HEMOGLOBIN 24.2 PG (27.0-31.0); MEAN CORPUSCULAR HGB CONC 30.7 g/dL (33.0-36.5); MEAN CORPUSCULAR VOLUME 78.6 FL (78-98); MEAN PLATELET VOLUME 10.9 FL (7.4-10.4); MONOCYTES # (AUTO) 0.6 X10'3 (0-0.9); NEUTROPHILS # (AUTO) 3.4 X10'3 (1.8-7.7); PLATELET COUNT 176 X10'3 (140-440); RED BLOOD COUNT 3.35 X10'6 (4.20-5.60); RED CELL DISTRIBUTION WIDTH 18.8 % (11.5-14.5); WHITE BLOOD COUNT 6.4 X10'3 (4.5-11.0)
--- NOTE | 2021-11-14 11:40 | NUR ---
Reassessment: Pt continues on full liquid diet and PPN. Per RN, pt has been eating about 10-25% of meals and likes the chocolate pudding. RN states that pt will not really drink the Ensures, but may like a magic cup. RD recommends discontinuing ONS and will add magic cups BID. Also visualized PPN at bedside infusing at goal. LBM 11/11 receiving PRN enemas. Will continue to monitor. Recommendations: 1) Continuous PPN per MD using 2:1 Clinimix-E 4.25/10 with goal rate 36 mL/hr with additional 250 mL 20% intralipids to run at 20.83 mL/hr for 12 hrs on Tuesdays and Fridays. In total to provide 864 mL total volume/day, 581 avg kcal, 37 g AA, and 86 g dextrose (2.44 mg/kg/min dext load). Unable to meet estimated energy needs. 2) IF Clinimix non-E 4.25/5 is available, continuous 2:1 Clinimix non-E 4.25/5 with 36 mL/hr goal rate with additional 250 mL 20% intralipids to run at 20.83 mL/hr for 12 hours on Tuesdays and Fridays. In total to provide 864 mL total volume/day, 37 g AA, 43 g dext (1.21 mg/kg/min dext load), and average 437 kcal/day. Unable to meet estimated energy needs 3) Prealbumin and TG q Sunday/ 4) Pt may benefit from PEG for intermission coordinator nutrition. IF TF, continuous Jevity 1.2 with 30 mL/hr goal rate 5) Routine bowel care; utilize PRN bowel care 6) Daily scaled wts 7) Advance to regular diet as medically indicated pending f/u BSS with ST 8) Ensure Enlive BIDBD, discontinue as pt does not consume them 9) chocolate pudding TIDWM, strawberry shake BIDLD, magic cup BIDLD Addendum: 11/14/21 at [address] Amended: Links added.
[2021-11-14 12:00] VITALS: BP 120/66
[2021-11-14] MEDS: cefTRIAXone 1g/NS 100ml IVPB 100 ML IV SCH (15:35)
[2021-11-14] MEDS: metoclopramide 5 mg/ml inj IV SCH (15:35)
[2021-11-14 17:19] LABS: PHOSPHORUS 2.3 MG/DL (2.3-4.5)
--- NOTE | 2021-11-14 18:17 | NUR ---
Problems reprioritized. Patient report given, questions answered & plan of care reviewed with IDALIA Killian.
[2021-11-14 20:00] VITALS: BP 113/60
[2021-11-14] MEDS: CHROMIC CHLORIDE IV SCH (21:44)
[2021-11-14] MEDS: [UNRECOGNIZED DRUG - OTHER] IV SCH (21:44)
[2021-11-14] MEDS: SELENIUM IV SCH (21:44)
[2021-11-14] MEDS: COPPER IV SCH (21:44)
[2021-11-14] MEDS: ZINC IV SCH (21:44)
[2021-11-14] MEDS: MANGANESE IV SCH (21:44)
[2021-11-15] VITALS: BP 96/47
[2021-11-15] MEDS: metoclopramide 5 mg/ml inj IV SCH ×2 (00:33→08:38)
--- NOTE | 2021-11-15 06:20 | NUR ---
received report from kimber sanchez
[2021-11-15 07:59] LABS: GLUCOSE 86 MG/DL (70-104); POTASSIUM 3.6 MMOL/L (3.5-5.1); SODIUM 145 MMOL/L (135-145)
[2021-11-15 08:00] VITALS: BP 108/75
[2021-11-15 08:00] LABS: ANION GAP 11 (8-16); BLOOD UREA NITROGEN 12 MG/DL (7-18); CHLORIDE 112 MMOL/L (99-107); eGFR > 90 ML/MIN
[2021-11-15] MEDS: K and/or MAG REPLACEMENT MC SCH (08:00)
[2021-11-15] MEDS: docusate sodium 100mg/10ml UD cup PO SCH (08:00)
[2021-11-15 08:10] LABS: ALANINE AMINOTRANSFERASE 113 U/L (12-78); ALBUMIN 1.7 G/DL (3.4-5.0); ALBUMIN/GLOBULIN RATIO 0.5 (1.1-1.5); ALKALINE PHOSPHATASE 116 IU/L (46-116); ASPARTATE AMINO TRANSFERASE 96 U/L (10-37); BILIRUBIN,TOTAL 0.1 MG/DL (0.1-1.0); CALCIUM 7.7 MG/DL (8.5-10.1)
[2021-11-15] MEDS: lactose-reduced food (Ensure Enlive) - 237ml bottle PO SCH (08:19)
[2021-11-15] MEDS: MVI, adult No.4 with vit. K 10 ML in dextrose 5% water 500ml 500 ML IV SCH ×2 (08:26)
[2021-11-15] MEDS: heparin, porcine 5000 units/ml vial SQ SCH (08:41)
[2021-11-15] MEDS: fat emulsion IV bag 250 ML IV SCH (09:46)
[2021-11-15 11:56] VITALS: BP 110/64
--- NOTE | 2021-11-15 13:14 | NUR ---
ATTEMPTED TO RETURN REMI HENDERSON AT [facility] AT [phone] AND [facility] WAS NOT AVAILABLE, THEREFORE, I SPOKE WITH ALONSO ABOUT PT BEING MEDICALLY STABLE FOR D/C PER HOSPITALIST AND THAT PT WILL BE PICKED UP AROUND [phone] FROM [facility] TO GO TO [facility]
[2021-11-15] MEDS ORDERED: dextrose 50%-water 50ml dispensing syringe IV ONE ×2 (13:53→13:55)
[2021-11-15] MEDS: cefTRIAXone 1g/NS 100ml IVPB 100 ML IV SCH (14:51)
--- NOTE | 2021-11-15 15:58 | NUR ---
pt d/c with instructions and w/all belongings in her power chair accompanied by caregiver[facility]
== END 2021-11-15 15:46 | disposition home or self-care (01) | DRG 426 ==
LOC: ER 11:10 → ED HOLD 15:33 → EDBEDREQ 20:22 → SUR 3N 21:53
PROVIDERS: ADMIT Internal Medicine; ATTEND Internal Medicine
DX: E87.0 Hyperosmolality and hypernatremia (principal); N17.0 Acute kidney failure with tubular necrosis; E43 Unspecified severe protein-calorie malnutrition; E86.0 Dehydration; N39.0 Urinary tract infection, site not specified; K56.41 Fecal impaction; B96.4 Proteus (mirabilis) (morganii) as the cause of diseases classified elsewhere; G80.9 Cerebral palsy, unspecified; E87.6 Hypokalemia; Z87.442 Personal history of urinary calculi; Z68.21 Body mass index [BMI] 21.0-21.9, adult; Z79.899 Other long term (current) drug therapy
CPT/HCPCS: 36410; 36415; 71045; 74176; 76937; 80048; 80053; 81001; 82948; 83605; 83690; 83735; 84100; 84132; 84134; 84295; 84478; 85008; 85025; 87040; 87077; 87081; 87088; 87186; 92508; 92616; 96361; 96365; 99285; G0378; J0696; J1644; J2765; J3480; J3490; J7042; J7050; J7060; J7070; J7120

== ENCOUNTER 2021-12-21 11:51 | Emergency (ER) | payer MEDICAID ==
[~2021-12-21] VITALS: Ht 111.8 cm; Wt 26.0 kg
[~2021-12-21 11:51] MED LIST changes: +CALC-729 PO; +DOCU100C40 PO; -GOLYS PO; +LACT10SO57 PO; +LORA10TA7 PO; +MULT-1085 PO; +PSYL0.4C2 PO; +VITS42.53 TP
[2021-12-21 12:16] VITALS: BP 107/75
[2021-12-21] MEDS ORDERED: MAGN296S68 PO (14:51)
== END 2021-12-21 16:17 | disposition home or self-care (01) ==
LOC: ER 11:52
DX: K59.00 Constipation, unspecified (principal); G80.9 Cerebral palsy, unspecified; R62.50 Unspecified lack of expected normal physiological development in childhood; Z79.899 Other long term (current) drug therapy
CPT/HCPCS: 99284

== ENCOUNTER 2022-04-02 23:28 | Emergency (ER) | payer MEDICAID ==
[~2022-04-02] VITALS: Ht 111.8 cm; Wt 26.3 kg
[~2022-04-02 23:28] MED LIST changes: +MAGN296S68 PO
[2022-04-02 23:48] VITALS: BP 106/73
--- NOTE | 2022-04-03 01:20 | NUR ---
VENIPUNTURE X1 FOR BLOOD DRAW DONE. LABS SENT.
[2022-04-03 01:37] LABS: BASOPHILS # (AUTO) 0.1 X10'3 (0-0.2); EOSINOPHILS # (AUTO) 0.4 X10'3 (0-0.9); MEAN CORPUSCULAR HGB CONC 31.6 g/dL (33.0-36.5); MONOCYTES # (AUTO) 0.7 X10'3 (0-0.9)
[2022-04-03 01:41] LABS: EOSINOPHILS % (AUTO) 4.9 % (0-6); HEMATOCRIT 32.3 % (35.0-45.0); HEMOGLOBIN 10.2 g/dl (12.0-16.0); LYMPHOCYTES # (AUTO) 2.9 X10'3 (1.1-4.8); LYMPHOCYTES % (AUTO) 35.9 % (21-51); MEAN CORPUSCULAR HEMOGLOBIN 22.6 PG (27.0-31.0); MEAN CORPUSCULAR VOLUME 71.6 FL (78-98); MEAN PLATELET VOLUME 7.9 FL (7.4-10.4); MONOCYTES % (AUTO) 8.4 % (2-12); NEUTROPHILS % (AUTO) 49.8 % (42-75); PLATELET COUNT 618 X10'3 (140-440); RED BLOOD COUNT 4.51 X10'6 (4.20-5.60); WHITE BLOOD COUNT 8.1 X10'3 (4.5-11.0)
[2022-04-03 01:44] LABS: D-DIMER 0.32 MG/L FEU (0-0.50)
[2022-04-03 01:46] LABS: ALANINE AMINOTRANSFERASE 37 U/L (12-78); ALBUMIN 3.1 G/DL (3.4-5.0); ALBUMIN/GLOBULIN RATIO 0.7 (1.1-1.5); ALKALINE PHOSPHATASE 95 IU/L (46-116); ANION GAP 10 (8-16); ASPARTATE AMINO TRANSFERASE 27 U/L (10-37); BILIRUBIN,TOTAL 0.3 MG/DL (0.1-1.0); BLOOD UREA NITROGEN 16 MG/DL (7-18); BUN/CREATININE RATIO 30.2 (6.6-38.0); C-REACTIVE PROTEIN 0.22 MG/DL (0.0-0.5); CALCIUM 8.7 MG/DL (8.5-10.1); CHLORIDE 104 MMOL/L (99-107); CREATININE 0.53 MG/DL (0.40-0.90); GLUCOSE 87 MG/DL (70-104); POTASSIUM 3.9 MMOL/L (3.5-5.1); SODIUM 140 MMOL/L (135-145); TOTAL CARBON DIOXIDE 26.5 MMOL/L (24-32); TOTAL PROTEIN 7.5 G/DL (6.4-8.2); eGFR > 90 ML/MIN
[2022-04-03] MEDS ORDERED: CEPH250T PO (02:34)
[2022-04-03] MEDS ORDERED: cephalexin 250mg capsule PO ONE (02:35)
[2022-04-03 03:12] LABS: PLATELET ESTIMATE INCREASED
[2022-04-03 03:13] LABS: ANISOCYTOSIS 2+; ELLIPTOCYTES FEW; LARGE PLATELETS FEW; MICROCYTOSIS 1+; TEAR DROP CELLS FEW
== END 2022-04-03 02:45 | disposition home or self-care (01) ==
LOC: ER 23:29
DX: T78.40XA Allergy, unspecified, initial encounter (principal); T50.905A Adverse effect of unspecified drugs, medicaments and biological substances, initial encounter; Z88.2 Allergy status to sulfonamides; Y92.89 Other specified places as the place of occurrence of the external cause; X58.XXXA Exposure to other specified factors, initial encounter
CPT/HCPCS: 36415; 80053; 84145; 85008; 85025; 85379; 85651; 86140; 99284

== ENCOUNTER 2023-01-20 21:23 | Emergency (ER) | payer MEDICAID ==
[~2023-01-20] VITALS: Ht 91.4 cm; Wt 27.0 kg
[~2023-01-20 21:23] MED LIST changes: -LACT10SO57 PO; +LACT10SO88 PO
[2023-01-20 23:57] LABS: BASOPHILS % (AUTO) 0.5 % (0-1); EOSINOPHILS # (AUTO) 0.1 X10'3 (0-0.9); HEMATOCRIT 27.8 % (35.0-45.0); HEMOGLOBIN 8.3 g/dl (12.0-16.0); LYMPHOCYTES # (AUTO) 1.2 X10'3 (1.1-4.8); LYMPHOCYTES % (AUTO) 13.1 % (21-51); MEAN CORPUSCULAR HEMOGLOBIN 19.9 PG (27.0-31.0); MEAN CORPUSCULAR HGB CONC 29.8 g/dL (33.0-36.5); MEAN CORPUSCULAR VOLUME 66.7 FL (78-98); MEAN PLATELET VOLUME 7.3 FL (7.4-10.4); MONOCYTES # (AUTO) 0.9 X10'3 (0-0.9); NEUTROPHILS # (AUTO) 6.7 X10'3 (1.8-7.7); NEUTROPHILS % (AUTO) 75.4 % (42-75); PLATELET COUNT 594 X10'3 (140-440); RED BLOOD COUNT 4.17 X10'6 (4.20-5.60); RED CELL DISTRIBUTION WIDTH 21.6 % (11.5-14.5); WHITE BLOOD COUNT 8.9 X10'3 (4.5-11.0)
[2023-01-21 00:09] LABS: ALANINE AMINOTRANSFERASE 24 U/L (12-78); ALBUMIN 3.2 G/DL (3.4-5.0); ALBUMIN/GLOBULIN RATIO 0.7 (1.1-1.5); ALKALINE PHOSPHATASE 87 IU/L (46-116); ANION GAP 9 (8-16); ASPARTATE AMINO TRANSFERASE 18 U/L (10-37); BILIRUBIN,TOTAL 0.3 MG/DL (0.1-1.0); BLOOD UREA NITROGEN 16 MG/DL (7-18); BUN/CREATININE RATIO 30.8 (10.0-20.0); CALCIUM 8.9 MG/DL (8.5-10.1); CHLORIDE 104 MMOL/L (99-107); CREATININE 0.52 MG/DL (0.40-0.90); GLUCOSE 97 MG/DL (70-104); POTASSIUM 4.1 MMOL/L (3.5-5.1); SODIUM 139 MMOL/L (135-145); TOTAL CARBON DIOXIDE 25.8 MMOL/L (24-32); TOTAL PROTEIN 7.6 G/DL (6.4-8.2); eGFR > 90 ML/MIN
[2023-01-21 00:30] LABS: PLATELET ESTIMATE INCREASED
[2023-01-21 00:32] LABS: ANISOCYTOSIS 3+; HYPOCHROMASIA 2+; MICROCYTOSIS 2+
[2023-01-21] MEDS ORDERED: normal saline 1000ML IV soln IVB ONE (01:20)
[2023-01-21] MEDS ORDERED: mineral oil 133ml enema RC STA (02:09)
--- NOTE | 2023-01-21 02:27 | NUR ---
disimpacted of large volume of stool in vault MD made aware.
[2023-01-21] MEDS ORDERED: lactulose 20gm/30ml cup PO ONE (02:30)
[2023-01-21] MEDS ORDERED: LACT10SO3 PO (02:30)
[2023-01-21 03:13] VITALS: BP 113/69
== END 2023-01-21 03:16 | disposition home or self-care (01) ==
LOC: ER 21:24
DX: K59.00 Constipation, unspecified (principal); R50.9 Fever, unspecified; Z88.2 Allergy status to sulfonamides; Z88.8 Allergy status to other drugs, medicaments and biological substances; Z79.899 Other long term (current) drug therapy; Z79.1 Long term (current) use of non-steroidal anti-inflammatories (NSAID); Z79.2 Long term (current) use of antibiotics
CPT/HCPCS: 36415; 71045; 74176; 80053; 83605; 84145; 85008; 85025; 87040; 96360; 99285; J7030; J7040

== ENCOUNTER 2023-07-29 12:45 | Emergency (ER) | payer MEDICAID ==
[~2023-07-29] VITALS: Ht 121.9 cm; Wt 27.3 kg
[~2023-07-29 12:45] MED LIST changes: +LACT10SO3 PO
[2023-07-29] MEDS ORDERED: mupirocin 2% ointment 22GM TP ONE (15:20)
[2023-07-29 15:40] VITALS: BP 139/107; PULSE 106; RESP 15; TEMP 97; O2SAT 95
== END 2023-07-29 15:55 | disposition home or self-care (01) ==
LOC: ER 12:45
DX: S31.000A Unspecified open wound of lower back and pelvis without penetration into retroperitoneum, initial encounter (principal); Z88.2 Allergy status to sulfonamides; Z88.8 Allergy status to other drugs, medicaments and biological substances; Z79.899 Other long term (current) drug therapy; X58.XXXA Exposure to other specified factors, initial encounter; Y93.89 Activity, other specified; Y92.89 Other specified places as the place of occurrence of the external cause; Y99.8 Other external cause status
CPT/HCPCS: 99283; J7030; A6212

== ENCOUNTER 2024-04-12 10:38 | Emergency (ER) | payer MEDICAID ==
[2024-04-12 10:40] VITALS: BP 107/64; PULSE 85; RESP 16; TEMP 98.5; O2SAT 99
[2024-04-12 11:44] LABS: URINE HCG NEGATIVE (NEG)
[2024-04-12 11:45] LABS: BILIRUBIN,URINE NEGATIVE (Neg); COLOR,URINE YELLOW (Yellow); GLUCOSE, URINE NEGATIVE (Neg); KETONES,URINE NEGATIVE (Neg); LEUKOCYTE ESTERASE ,URINE SMALL (Neg); NITRITES, URINE POSITIVE (Neg); OCCULT BLOOD,URINE NEGATIVE (Neg); PROTEIN,URINE NEGATIVE (Neg); UROBILINOGEN,URINE 0.2 E.U/dL (0.2-1.0)
[2024-04-12 11:48] LABS: CLARITY,URINE SLIGHTLY CLOUDY (Clear); UA COLLECTION TYPE STRAIGHT CATH
[2024-04-12 11:49] LABS: RBC,URINE NONE SEEN /HPF (0-2)
[2024-04-12 11:50] LABS: BACTERIA,URINE 2+ /HPF (Neg); MUCUS STRANDS NONE SEEN /LPF (Neg); SQUAMOUS EPITHELIAL CELL,UR MANY /LPF (FEW)
[2024-04-12] MEDS ORDERED: CEPH-585 PO (12:20)
== END 2024-04-12 12:55 | disposition home or self-care (01) ==
LOC: ER 10:39
DX: N39.0 Urinary tract infection, site not specified (principal); G80.8 Other cerebral palsy; K56.41 Fecal impaction; Z88.2 Allergy status to sulfonamides; Z79.899 Other long term (current) drug therapy
CPT/HCPCS: 81001; 81025; 87077; 87088; 87186; 99284